=== PATIENT | female | born 1985 | race Two or more races ===

== ENCOUNTER 2025-02-08 22:49 | Inpatient (IN) | payer BC, MEDICAID, SELFPAY ==
[2025-02-08 22:51] VITALS: BMI 39.9
[2025-02-08 23:34] VITALS: BP 141/90; PULSE 121; RESP 18; TEMP 39.1; O2SAT 96
--- NOTE | 2025-02-08 23:41 | PD.EDRME ---
Rapid Medical Screening Exam RME Arrival date/time: 02/08/25 22:49 This is a case of 39 year old female came in with fever and abodminal pain with dysuria hx of kidney stone Chief Complaint: Fever Time Seen by Provider: 02/08/25 23:40 Vital signs: Vital Signs Temperature 102.4 F H 02/08/25 23:34 Pulse Rate 121 H 02/08/25 23:34 Respiratory Rate 18 02/08/25 23:34 Blood Pressure 141/90 H 02/08/25 23:34 Pulse Oximetry (%) 96 02/08/25 23:34 Oxygen Delivery Method Room Air 02/08/25 23:34
[2025-02-08 23:59] LABS: Lactate (Lactic Acid) 0.7 mMol/L (0.4-2.0)
[2025-02-09] VITALS (16 sets, daily range): BP systolic 110–144; BP diastolic 72–98; PULSE 80–111; RESP 18–20; TEMP 36.4–38.4; O2SAT 96–99; BMI 39.6
[2025-02-09 00:01] LABS: Basophils % (Auto) 0 % (0-2.5); Eosinophils % (Auto) 0 % (0-10); Hematocrit 36.3 % (36.0-46.0); Hemoglobin 12.9 g/dL (12.0-16.0); Immature Granulocytes % (Auto) 1 % (0-0); Immature Granulocytes Auto 0.11 Thou/mm3 (0.00-0.00); Lymphocytes # (Auto) 0.8 Thou/mm3 (1.0-4.8); Lymphocytes % (Auto) 5 % (10-50); Mean Corpuscular HGB Conc 35.5 g/dl (31.0-37.0); Mean Corpuscular Hemoglobin 28.2 pg (25.0-35.0); Mean Corpuscular Volume 79 fL (80-100); Monocytes # (Auto) 1.2 Thou/mm3 (0.0-0.8); Monocytes % (Auto) 8 % (0-12); Neutrophils # (Auto) 13.7 Thou/mm3 (1.8-7.7); Neutrophils % (Auto) 87 % (37-80); Nucleated Red Blood Cell % 0 /100 WBC (0); Platelet Count 246 Thou/mm3 (140-440); RDW Standard Deviation 38.2 fL (36.4-46.3); Red Blood Count 4.57 Miln/mm3 (4.00-5.20); White Blood Count 15.8 Thou/mm3 (3.6-11.0)
[2025-02-09 00:27] LABS: Alanine Aminotransferase 16 U/L (10-49); Albumin, Serum 4.5 gm/dL (3.5-5.0); Albumin/Globulin Ratio 1.5 (1.2-2.2); Alkaline Phosphatase 126 U/L (46-116); Anion Gap 11 (7-16); Aspartate Amino Transferase 15 U/L (0-34); BUN/Creatinine Ratio 8 Ratio (12-20); Bilirubin,Total 0.8 mg/dL (0.3-1.2); Blood Urea Nitrogen 6 mg/dL (9-23); Carbon Dioxide 21.2 mMol/L (20.0-31.0); Chloride 105 mMol/L (98-107); Creatinine (Component) 0.8 mg/dL (0.6-1.3); Estimated Creatinine Clearance 113.6 mL/min (>60); Globulin 3.1 gm/dL (2.3-3.5); Glucose 124 mg/dL (74-106); Lipase 31 U/L (12-53); Osmolality,Calculated 272 (275-295); Potassium 3.3 mMol/L (3.4-5.1); Sodium 137 mMol/L (136-145); Total Protein 7.6 gm/dL (5.7-8.2); eGFR > 60 See Note
[2025-02-09] MEDS: SODIUM CHLORIDE 0.9% 1000 ML 1,710 ML 1710 ML IV (00:40)
[2025-02-09] MEDS: cefTRIAXone/D5w 1gm IV premix 1 GM/50 ML BAG IV ×2 (00:42→06:34)
[2025-02-09] MEDS: ACETAMINOPHEN 325 MG TABLET 650 MG PO ×3 (00:42→22:41)
--- NOTE | 2025-02-09 00:54 | PD.EDABDPN ---
ED Abdominal Pain RME/HPI General Chief Complaint: Fever Stated complaint: FEVER , ABD TENDER, NAUSEA, DIZZY Time seen by provider: 02/08/25 23:40 Arrival date/time: 02/08/25 22:49 Limitations: no limitations RME / HPI RME / HPI narrative: 02/08/25 22:49 This is a case of 39 year old female came in with fever and abodminal pain with dysuria hx of kidney stone -------- Dr. Santiago'stephne Main ED Evaluation: 39yo female presents to the ED for complaints of bilateral mid abdominal pain and a fever x 1 day. No radiation or migration. Patient reports associated dizziness, chills, and nausea. She denies any runny nose, cough, vomiting, dysuria, chest pain, shortness of breath or any other associated symptoms. She denies any sick contacts. NKA. Related Data Previous Rx's ?Medication ?Instructions ?Recorded cephalexin 500 mg capsule 500 mg PO TID 7 days #21 caps 02/09/25 Allergies Allergy/AdvReac Type Severity Reaction Status Date / Time No Known Allergies Allergy Verified 07/09/24 10:19 Review of Systems Review of Systems Systems Reviewed: All systems reviewed, normal except as documented Past Medical History Past Medical History NEUROLOGIC: Negative Neurological Disorders or Seizures CARDIAC: Positive Cardiac Disorders and Hypercholesterolemia; Negative Congestive Heart Failure or Hypertension RESPIRATORY: Negative Chronic Obstructive Pulmonary Disease (COPD) or Asthma GASTROINTESTINAL: Negative Gastrointestinal Disorders GENITOURINARY: Positive Genitourinary Disorders and Kidney Stones; Negative Renal Disease REPRODUCTIVE: Positive Previous Pregnancies MUSCULOSKELETAL: Negative Musculoskeletal Disorders ENDOCRINE: Positive Endocrine Disorders and Parathyroid Disease; Negative Diabetes Mellitus Type 1 or Diabetes Mellitus Type 2 HEMATOLOGIC: Positive Blood Disorders and Anemia; Negative Sickle Cell Disease OTHER HISTORY: Positive Hospitalization and Chicken Pox; Negative Autoimmune Disease, Blood Transfusions, Blood Transfusion Reaction, Anesthesia Reactions or Cancer Family History FAMILY HISTORY: Negative Family Psychiatric Problems, Family Respiratory Disorders, Family Cardiac Disorders, Family Gastrointestinal Problems, Family Cancer, Family Surgery or Family Anesthesia Reaction Surgical History SURGICAL: Positive Tubal Ligation and Section Social History SMOKING STATUS: Never smoker SECOND HAND EXPOSURE: No SUBSTANCE USE: does not use ED Exam General Limitations: Present no limitations General appearance: Present alert, in no apparent distress and other (appears fatigued) Head Head exam: Present atraumatic Eye Eye exam: Present normal appearance, PERRL and EOMI ENT ENT exam: Present normal exam, normal oropharynx and mucous membranes moist Neck Neck exam: Present normal inspection, full ROM and trachea midline Chest Chest inspection: Present normal inspection and symmetric chest wall rise Respiratory Respiratory exam: Present normal lung sounds bilaterally Cardiovascular Cardiovascular exam: Present regular rate, normal rhythm and normal heart sounds Abdominal Exam Abdominal exam: Present soft and other (mild bilateral mid abdominal pain on palpation); Absent guarding, rebound or Pickard's sign Extremities Exam Extremities exam: Present normal inspection and full ROM Back Exam Back exam: Present normal inspection and full ROM; Absent CVA tenderness (R) or CVA tenderness (L) Neurological Exam Neurological exam: Present alert, oriented X3 and CN II-XII intact Psychiatric Psychiatric exam: Present normal affect and normal mood Skin Skin exam: Present warm, dry, intact and normal color Course Course Course Narrative: 2342: Sepsis alert initiated. Orders made at this time are congruent with ED Adult Sepsis Order List. Re-evaluation is to be completed. 0245: NS IVF infused. 0315: Sepsis reassessment performed consisting of lab review, vitals, physical exam including auscultation of heart, lungs, and visual evaluation of capillary refills, mucosal membranes and extremities. 0551: Patient is febrile with a temperature of 101.2 and is tachycardic. Will consult an admission to the hospitalist. 0600: Care signed out to Dr. Davis (emergency physician). Past medical, surgical, social and family history reviewed. Vitals and home medications reviewed. Results and treatment plan discussed. They will assume the care of the patient at this time and will follow the patient, pending transfer. Quality Measures Possible source: GI tract/intra-abdominal and genitourinary Blood cultures ordered: yes Antibiotic ordered: Yes Pertinent labs: 02/08/25 23:55 Lactic Acid 0.7 mMol/L (0.4-2.0) Procalcitonin 0.40 ng/ml (0.0-0.49) sepsis Orders Category Date Time Status Bedside COVID-19 Antigen Test NOW Care 02/08/25 23:[address] Screening NOW Care 02/09/25 02:[address] abdomen pelvis w con Stat Exams 02/09/25 02:41 Taken Blood Culture (Lab) Stat Lab 02/08/25 23:50 Received CBC Stat Lab 02/08/25 23:55 Completed Comprehensive Metabolic Panel Stat Lab 02/08/25 23:55 Completed HCG Qualitative,Urine Stat Lab 02/09/25 00:11 Completed Lactate (Lactic Acid) Stat Lab 02/08/25 23:55 Completed Lipase Stat Lab 02/08/25 23:55 Completed Procalcitonin Stat Lab 02/08/25 23:55 Completed Urinalysis Stat Lab 02/09/25 00:11 Completed Acetaminophen Tab [Tylenol Tab] Med 02/08/25 23:40 Discontinued 650 mg PO X1 ONE Sodium Chloride 0.9% 1000 ml [Ns] 1,710 ml Med 02/08/25 23:55 Discontinued IV 1,710 mls/hr cefTRIAXone/D5w 1gm IV premix [Rocephin/D5w 1gm IV Med 02/08/25 23:56 Discontinued premix] 1 gm in 50 ml IV X1 cefTRIAXone/D5w 1gm IV premix [Rocephin/D5w 1gm IV Med 02/09/25 05:18 Pending premix] 1 gm in 50 ml IV X1 Vital Signs Vital signs: Vital Signs Temperature 102.4 F H 02/08/25 23:34 Pulse Rate 121 H 02/08/25 23:34 Respiratory Rate 18 02/08/25 23:34 Blood Pressure 141/90 H 02/08/25 23:34 Pulse Oximetry (%) 96 02/08/25 23:34 Oxygen Delivery Method Room Air 02/08/25 23:34 Abdominal Pain MDM Patient data External records reviewed:: [facility] previous records (Per chart review, patient was seen here on 06/03/24 for palpitations.) Clinical information provided by:: patient Social determinants that could affect healthcare access:: none Patient has the following chronic illnesses:: HLD How is presenting disease/condition affected by chronic disease/condition?: uneffected by Evaluation data The following diagnostics were reviewed and interpreted by me:: lab results and radiology exam(s) Lab and/or radiology exams considered but not ordered:: none Interpretation Summary: WBC 15.8, Potassium 3.3, Glucose 124, Lactic Acid is normal, Lipase is normal, Procalcitonin is normal, UA is positive for a UTI, HCG is negative, according to my interpretation. ----- Telerad Preliminary Report Draft Patient: YVETTE VILLEDALA [facility] Record#: [id number] Birthdate: 1985 Age/Sex: 39 / F Location: [facility] Attending Dr: Ordering Physician: Date of Service: Procedure(s): Accession Number(s): cc: ~ CT scan of the abdomen and pelvis with intravenous contrast (axial sections with sagittal and coronal reformats) February 09, 2025 at 0344 hours Clinical History: 39 yo with abdominal pain. Comparison: None. Findings: The lung bases are clear. The liver, gallbladder, pancreas, spleen, and adrenals are unremarkable. Nonobstructing bilateral kidney stones. Mildly heterogeneous right renal enhancement. Mild right hydroureteronephrosis with transition point at the UVJ. Mild right perinephric fat stranding. No evidence of bowel obstruction. The appendix is within normal limits. There is no mesenteric or retroperitoneal adenopathy. The urinary bladder is unremarkable. There is no free fluid or free air. No acute fractures. Chronic disc disease at L4-L5 and L5-S1. The uterus and ovaries are within normal limits. Impression: 1. Nonobstructing bilateral nephrolithiasis. 2. Right hydroureteronephrosis with transition point at the UVJ, consider recently passed right ureteral stone in the differential diagnosis. 3. Right perinephric fat stranding and mild heterogeneous enhancement of the right kidney, consider pyelonephritis in the differential diagnosis. Report Electronically Signed By: David Mcnally 02/09/2025 4:47:54 AM Medications / Prescriptions Medications or Prescriptions considered but not ordered:: none Medication administrations:: Medication Administration History Ceftriaxone Sodium/Dextrose (Rocephin/D5w 1gm Iv Premix) 1 gm in 50 mls @ 100 mls/hr IV X1 ONE Stop: 02/09/25 05:47 Discontinued Medications Acetaminophen (Acetaminophen 325 Mg Tablet) 650 mg PO X1 ONE Stop: 02/08/25 23:41 Last Admin: 02/09/25 00:42 Dose: 650 mg Documented By: DARYL Sodium Chloride (Ns) 1,710 mls @ 1,710 mls/hr 30 ml/kg infuse over 60 min (1710 ml) IV .Q1H ONE Stop: 02/09/25 00:54 Last Infusion: 02/09/25 02:45 Dose: Infused Documented By: Admin: 02/09/25 00:40 Dose: 1,710 mls/hr Documented By: DARYL Ceftriaxone Sodium/Dextrose (Rocephin/D5w 1gm Iv Premix) 1 gm in 50 mls @ 100 mls/hr IV X1 ONE Stop: 02/09/25 00:25 Last Infusion: 02/09/25 02:45 Dose: Infused Documented By: Admin: 02/09/25 00:42 Dose: 100 mls/hr Documented By: DARYL see above Consultations Consultation(s) initiated? (list below): Yes Consultation #1 (Physician, Specialty, Details): Discussed case with the resident physician, attending Dr. Wilkerson from Hospitalist service regarding admission. Discussed patients ED course, exam findings, labs, and radiology results. The Hospitalist requests the patient to be transferred due to concern for ureteral stricture. Time: 05:53 Diagnosis Differential diagnosis abdominal pain: other (atypical presentation of appendicitis, UTI, pyelonephritis, sepsis) Most likely diagnosis given after review of the tests above:: see clinical impression below Admission Indicated Admission indicated?: not indicated Admission Request Was there a request for admission?: No Disposition Plan Disposition Plan: other (specify) (Signed out to Dr. Davis at 0600 pending transfer.) Critical Care Time Critical Care Time Critical Care Time: Yes Total Critical Care Time (min.): 45 Attestation: The high probability of sudden, clinically significant deterioration in the patient?s condition required the highest level of my preparedness to intervene urgently. The services I provided to this patient were to treat and/or prevent clinically significant deterioration. Services included the following: chart data review, reviewing nursing notes and/or old charts, documentation time, financial analysis consultant collaboration regarding findings and treatment options, medication orders and management, direct patient care, vital sign assessments and ordering, interpreting and reviewing diagnostic studies and lab tests. Aggregate critical care time includes only time during which I was engaged in work directly related to the patient?s care, as described above, whether at bedside or elsewhere in the Emergency Department. It did not include time spent performing other reported procedures or the services of residents, students, nurses or physician assistants. Discharge Plan Plan Patient Disposition: HOME (Self Care) Patient condition on transfer: Stable Prescriptions/Referrals Prescriptions/Med Rec: New cephalexin 500 mg capsule 500 mg PO TID 7 Days Qty: 21 0RF Referrals: Brodie Linn [Primary Care Provider] - In 1 week Problem List Clinical Impression: Pyelonephritis, Unspecified renal colic Patient/Caregiver Discharge Instructions Diet Instructions: Stay hydrated with Pedialyte and Gatorade Education Materials: ED Pyelonephritis, Female (Adult) Additional Instructions: You likely passed a kidney stone. However now we will treat you for urinary tract infection. Please take the antibiotics until completion. If you are on control pills you will have to find an alternate for control for the next 30 days. You can take [id number] Tylenol or Motrin as needed for any pain or fever. Return to the emergency department for worsening symptoms, or any other concerns. Print Language: Emirati Stand Alone Forms: [facility] Award Info., Patient Portal Info Letter
[2025-02-09 00:55] LABS: Collection Type, Urine Clean Catch
[2025-02-09 01:04] LABS: Bacteria,Urine Rare; Bilirubin,Urine Negative (Negative); Blood,Urine 1+ (Negative); Clarity,Urine Clear (Clear/Hazy); Color,Urine Colorless (Lt Yel-Yel); Glucose, Urine Negative (Negative); Ketones,Urine Trace (Negative); Leukocyte Esterase,Urine Positive (Negative); Nitrite,Urine Negative (Negative); PH,Urine 6.5 (5.0-7.0); Protein,Urine Negative (Neg - Trace); RBC,Urine 9 /hpf (0-3); Specific Gravity,Urine 1.005 (1.001-1.035); Squamous Epithelial Cell,Urine 1 /hpf (0-5); Urobilinogen,Urine Negative mg/dL (0.0-1.0); WBC,Urine 23 /hpf (0-5)
[2025-02-09 01:07] LABS: HCG Qualitative,Urine Negative
--- NOTE | 2025-02-09 02:41 | XR_ITS ---
Examination: CT abdomen with intravenous contrast CT pelvis with intravenous contrast 2-D coronal reconstructions 2-D sagittal reconstructions Date and time of exam:February 09, 2025 0344 hours Comparison 06/12/2023 INDICATIONS: Fever abdominal pain dizziness and nausea today, history kidney stones. CTDI: vol (mGy) 15.7 DLP: (mGycm) 926 Technique: Multiple axial sections of the abdomen and pelvis have been obtained. 64 slice high-resolution scanner used. 3 mm axial sections have been obtained, post intravenous injection 60 cc [id number] 2-D sagittal, coronal reconstructions obtained. Low dose protocols were performed. One or more of the following dose reduction techniques were used; automated exposure control, adjustment of the mA and/or KV according to patient size, use of iterative reconstruction technique. Findings: Fatty infiltration throughout the liver no focal liver lesions No gallstones No splenic or pancreatic lesion 20 mm left adrenal nodule likely adenoma Numerous bilateral renal calculi, minimal bilateral hydronephrosis, wall thickening of the ureters No ureteral calculi Normal appendix No bowel obstruction Anteverted uterus No pelvic mass No bladder mass or bladder calculi Advanced degenerative disc disease L5-S1 IMPRESSION: Numerous bilateral nonobstructing renal calculi Bilateral urinary tract infection appearance
--- NOTE | 2025-02-09 04:48 | PRELIM_ITS ---
CT scan of the abdomen and pelvis with intravenous contrast (axial sections with sagittal and coronal reformats) February 09, 2025 at 0344 hours Clinical History: 39 yo with abdominal pain. Comparison: None. Findings: The lung bases are clear. The liver, gallbladder, pancreas, spleen, and adrenals are unremarkable. Nonobstructing bilateral kidney stones. Mildly heterogeneous right renal enhancement. Mild right hydroureteronephrosis with transition point at the UVJ. Mild right perinephric fat stranding. No evidence of bowel obstruction. The appendix is within normal limits. There is no mesenteric or retroperitoneal adenopathy. The urinary bladder is unremarkable. There is no free fluid or free air. No acute fractures. Chronic disc disease at L4-L5 and L5-S1. The uterus and ovaries are within normal limits. Impression: 1. Nonobstructing bilateral nephrolithiasis. 2. Right hydroureteronephrosis with transition point at the UVJ, consider recently passed right ureteral stone in the differential diagnosis. 3. Right perinephric fat stranding and mild heterogeneous enhancement of the right kidney, consider pyelonephritis in the differential diagnosis. Report Electronically Signed By: David Mcnally 02/09/2025 4:47:54 AM [EST]
--- NOTE | 2025-02-09 06:19 | XR_ITS ---
Examination: AP chest single view TECHNIQUE: AP portable upright chest single view Date and time: Made 2024 at 0623 hours INDICATIONS: Abdominal pain and fever today FINDINGS: No significant cardiac enlargement Mild elevation right hemidiaphragm. No lobar pneumonia or pulmonary edema. Mild osteopenia IMPRESSION: No pneumonia identified
[2025-02-09] MEDS: POTASSIUM CHLORIDE 20 mEq TABCR 40 MEQ PO (06:33)
[2025-02-09] MEDS: SODIUM CHLORIDE 0.9% 1000 ML 1,000 ML 150 ML IV (06:34)
[2025-02-09] MEDS: SODIUM CHLORIDE 0.9% 1000 ML 1,000 ML 999 ML IV (06:34)
--- NOTE | 2025-02-09 06:37 | PD.EDADDENDU ---
Emergency Room Addendum <Radha Espinosa - Last Filed: 02/09/25 07:54> Addendum Narrative: 0600: Care assumed from Dr. Grady, the previous shift emergency physician. Past medical, surgical, social and family history reviewed. Vitals and home medications reviewed. I will assume the care of the patient at this time, pending possible urology transfer. Please refer to the emergency department record for history and examination from initial visit.? Physical exam by me shows patient under no acute distress at this time. 0750: Discussed test HPI, PMHx, lab, radiology results and/or management with Dr. Shukla. Will consult an admission to the hospitalist. <Tyrell Davis MD - Last Filed: 02/09/25 07:55> Addendum Narrative: 0600: Care assumed from Dr. Grady, the previous shift emergency physician. Past medical, surgical, social and family history reviewed. Vitals and home medications reviewed. I will assume the care of the patient at this time, pending possible urology transfer. Please refer to the emergency department record for history and examination from initial visit.? Physical exam by me shows patient under no acute distress at this time. 0750: Discussed test HPI, PMHx, lab, radiology results and/or management with Dr. Shukla. Will consult an admission to the hospitalist. Hospitalist was called Dr Hassan and they will be admitting the patient. Patient did meet SIRS criteria formally. She had several liters of fluid initial lactic acid was normal and after Tylenol and fluids patient is looking better heart rate was in the 90s last was checked.
[2025-02-09] MEDS: ACETAMINOPHEN 500 MG TABLET 1000 MG PO (06:38)
[2025-02-09] MEDS: PANTOPRAZOLE 40 MG TABLET PO (10:18)
--- NOTE | 2025-02-09 13:12 | PD.RESHP ---
Documentation for date of: 02/09/25 [facility] History of Present Illness History of present illness: Cristina Castañeda is a 39-year-old female with a past medical history of hyperparathyroidism and recurrent nephrolithiasis who presents on 02/09 with fevers and chills. Patient states that symptoms started in the morning with associated nausea, dizziness, headaches, and bilateral flank pain. She has a known history of recurrent nephrolithiasis and secondary to hypercalcemia/hyperparathyroidism. Follows up with Dr. Carballo and has had ureteral stents placed in the past that have since been removed. Otherwise, denies hematuria, dysuria, or urinary frequency. States that she used to follow-up with an educational manager in the past but no longer does. In the ED, BP 141/90, HR 121, temp 1 to 2.4 ?F. WBC 15.8, otherwise CBC unremarkable. CHEM panel showed K of 3.3, normal kidney function, normal lactate, normal corrected calcium 10, Pro-Jeff negative. UA showed 1+ blood, 9 RBC, 23 WBC, rare bacteria, beta-hCG negative. CT A/P showed numerous bilateral nonobstructing renal calculi, minimal bilateral hydronephrosis with wall thickening of the ureters. Given IVF per sepsis protocol, an additional 1 L NS, and started on maintenance IVF, ceftriaxone 1 g x 2, 40 mEq of KCl. PMHx: hyperparathyroidism, recurrent nephrolithiasis Medications: none FHx: nephrolithiasis in sister and mother PSHx: ureteral stents Review of Systems Review of Systems Systems Reviewed: All systems reviewed, normal except as documented Exam Vital Signs Temp Pulse Resp BP Pulse Ox O2 Del Method 97.6 F 88 18 122/80 99 Room Air 02/09/25 11:48 02/09/25 11:48 02/09/25 11:48 02/09/25 11:48 02/09/25 11:48 02/09/25 11:48 Narrative Exam General: AOx3, no acute distress, able to speak full sentences HEENT: NC/AT, mucous membranes moist, bilateral sclera anicteric Cardiovascular: regular rate and rhythm, S1/S2 present, no murmurs appreciated Pulmonary: clear to auscultation bilaterally, no rales/rhonchi/wheezes Abdominal: soft, non-tender, non-distended, no rebound/guarding, normal bowel sounds present Musculoskeletal: no CVA tenderness, normal ROM, no peripheral edema Skin: warm and dry, intact, no rashes Neuro: CN II-XII intact, no focal deficits Results: Labs 02/10/25 04:29 02/10/25 04:29 Labs: Short CBC 02/08/25 Range/Units 23:55 WBC 15.8 H (3.6-11.0) Thou/mm3 Hgb 12.9 (12.0-16.0) g/dL Hct 36.3 (36.0-46.0) % Plt Count 246 (140-440) Thou/mm3 BMP 02/08/25 23:55 Sodium 137 Potassium 3.3 L Chloride 105 Carbon Dioxide 21.2 BUN 6 L Creatinine 0.8 Glucose 124 H Calcium 10.0 Liver Function 02/08/25 Range/Units 23:55 Total Bilirubin 0.8 (0.3-1.2) mg/dL AST 15 (0-34) U/L ALT 16 (10-49) U/L Alkaline Phosphatase 126 H (46-116) U/L Albumin 4.5 (3.5-5.0) gm/dL Urine 02/09/25 Range/Units 00:11 Urine Color Colorless A (Lt Yel-Yel) Urine Clarity Clear (Clear/Hazy) Urine pH 6.5 (5.0-7.0) Ur Specific [place] 1.005 (1.001-1.035) Urine Protein Negative (Neg - Trace) Urine Glucose (UA) Negative (Negative) Quality Measures Quality Measures sepsis Current suspected stage: ruled out Possible source: GI tract/intra-abdominal and genitourinary Blood cultures ordered: yes Antibiotic ordered: Yes Medications Home Medications and Allergies Allergies Allergy/AdvReac Type Severity Reaction Status Date / Time No Known Allergies Allergy Verified 07/09/24 10:19 Visit Medications Acetaminophen (Acetaminophen 325 Mg Tablet) 650 mg PO Q6H PRN PRN Reason: PAIN 1-3 OR FEVER > 100.4 Stop: 03/11/25 08:57 Hydrocodone Bitart/Acetaminophen (Hydrocodone/Apap 5/325 Tablet) 1 tab PO Q6HR PRN PRN Reason: PAIN SCALE 4-6 (Moderate Stop: 02/14/25 08:57 Ceftriaxone Sodium/Dextrose (Rocephin/D5w 1gm Iv Premix) 1 gm in 50 mls @ 100 mls/hr IV QDAY [facility] Stop: 02/17/25 08:59 Ondansetron HCl (Ondansetron Inj 2 Mg/Ml Inj 2 Ml) 4 mg IV Q6H PRN; Protocol PRN Reason: NAUSEA OR VOMITING Stop: 03/11/25 08:57 Pantoprazole Sodium (Pantoprazole 40 Mg Tablet) 40 mg PO QDAY [facility] Stop: 03/11/25 08:59 Last Admin: 02/09/25 10:18 Dose: 40 mg Discontinued Medications Acetaminophen (Acetaminophen 325 Mg Tablet) 650 mg PO X1 ONE Stop: 02/08/25 23:41 Last Admin: 02/09/25 00:42 Dose: 650 mg Acetaminophen (Acetaminophen 500 Mg Tablet) 1,000 mg PO X1 ONE Stop: 02/09/25 06:34 Last Admin: 02/09/25 06:38 Dose: 1,000 mg Sodium Chloride (Ns) 1,710 mls @ 1,710 mls/hr 30 ml/kg infuse over 60 min (1710 ml) IV .Q1H ONE Stop: 02/09/25 00:54 Last Infusion: 02/09/25 02:45 Dose: Infused Ceftriaxone Sodium/Dextrose (Rocephin/D5w 1gm Iv Premix) 1 gm in 50 mls @ 100 mls/hr IV X1 ONE Stop: 02/09/25 00:25 Last Infusion: 02/09/25 02:45 Dose: Infused Ceftriaxone Sodium/Dextrose (Rocephin/D5w 1gm Iv Premix) 1 gm in 50 mls @ 100 mls/hr IV X1 ONE Stop: 02/09/25 05:47 Last Infusion: 02/09/25 07:05 Dose: Infused Sodium Chloride (Ns) 1,000 mls @ 999 mls/hr IV .Q1H1M ONE Stop: 02/09/25 06:57 Last Infusion: 02/09/25 07:35 Dose: Infused Sodium Chloride (Ns) 1,000 mls @ 150 mls/hr IV .Q6H40M ONE Stop: 02/09/25 12:58 Last Admin: 02/09/25 06:34 Dose: 150 mls/hr Potassium Chloride (Potassium Chloride 20 Meq Tabcr) 40 meq PO X1 ONE Stop: 02/09/25 06:20 Last Admin: 02/09/25 06:33 Dose: 40 meq Assessment & Plan Plan Cristina Castañeda is a 39-year-old female with a past medical history of hyperparathyroidism and recurrent nephrolithiasis who presents on 02/09 with fevers and chills. Patient states that symptoms started in the morning with associated nausea, dizziness, headaches, and bilateral flank pain. Admitted for hydronephrosis/? pyelonephritis with urology consulted. #Complicated UTI #Bilateral, nonobstructing renal calculi #Bilateral hydronephrosis #History of recurrent nephrolithiasis s/p ureteral stenting Presents with fever, chills, nausea, dizziness, and bilateral flank pain for one day. Has history of recurrent nephrolithiasis with ureteral stents placed in the past and follows-up with Dr. Carballo. SIRS positive with HR 121, HR 102.4 F, and WBC 15.8 and source likely urological -> sepsis, but no signs of end-organ damage. ? Urology consulted, appreciate recommendations ? Follow-up urine cultures ? Ceftriaxone 1 g IV daily (02/09-) ? Pain management: tylenol, norco #History of hyperparathyroidism Not currently on any medications and does not follow-up with educational manager. Ca within normal limits upon presentation. ? Follow-up AM PTH levels Hospital management: Disposition: pending further urology recommendations Diet: renal Lines: PIV DVT prophylaxis: SCDs GI prophylaxis: pantoprazole 40 mg daily CODE STATUS: full code ----- Plan discussed with attending physician Dr. Kimber Stafford MD PGY-1 Internal Medicine Attending Provider Attestation/Addendum I attest that I was physically present for the evaluation, physical examination, lab and imaging review of the patient with the residents. I discussed the case with the residents and agree with the findings and plans of care as documented above. Patient is a 39 years old female with past medical history of hyperthyroidism and recurrent nephrolithiasis who presented with complaint of fever and chills. Her symptoms started this morning, associated with nausea, dizziness, headaches and bilateral flank pain. She follows with Dr. Linda was for her kidney stones and had stents placed in the past which has been removed already. In the ED, her blood pressure was 141/90, temperature was 102.4 ?F, other vitals were stable. WBC count was 15.8, potassium 3.3, corrected calcium 10. Urinalysis showed 1+ blood, 9 RBCs, 23 WBCs, rare bacteria. CT abdomen/pelvis was obtained, which showed numerous bilateral nonobstructing renal calculi, minimal bilateral hydronephrosis with wall thickening of ureters. Urology was contacted by ED, who agreed to consult. After examination of the patient and review of the clinical data I feel that this patient needs admission to the hospital for further treatment/evaluation on complicated UTI in setting of bilateral nonobstructive renal calculi, mild bilateral hydronephrosis. Will start her on IV Rocephin, obtain cultures and await urology recommendations. We will also follow-up with her calcium level and PTH level in the morning. Marco A Quiroga MD
[2025-02-10] VITALS: BP 109/77; PULSE 100; RESP 18; TEMP 36.2; O2SAT 97
[2025-02-10 04:00] VITALS: BP 121/74; PULSE 86; RESP 18; TEMP 36.6; O2SAT 98
[2025-02-10 05:42] LABS: Basophils % (Auto) 0 % (0-2.5); Eosinophils % (Auto) 0 % (0-10); Hematocrit 34.4 % (36.0-46.0); Hemoglobin 11.5 g/dL (12.0-16.0); Immature Granulocytes % (Auto) 1 % (0-0); Immature Granulocytes Auto 0.06 Thou/mm3 (0.00-0.00); Lymphocytes # (Auto) 1.1 Thou/mm3 (1.0-4.8); Lymphocytes % (Auto) 9 % (10-50); Mean Corpuscular HGB Conc 33.4 g/dl (31.0-37.0); Mean Corpuscular Hemoglobin 28.3 pg (25.0-35.0); Mean Corpuscular Volume 85 fL (80-100); Monocytes # (Auto) 1.4 Thou/mm3 (0.0-0.8); Monocytes % (Auto) 12 % (0-12); Neutrophils # (Auto) 9.6 Thou/mm3 (1.8-7.7); Neutrophils % (Auto) 79 % (37-80); Nucleated Red Blood Cell % 0 /100 WBC (0); Platelet Count 183 Thou/mm3 (140-440); RDW Standard Deviation 42.1 fL (36.4-46.3); Red Blood Count 4.07 Miln/mm3 (4.00-5.20); White Blood Count 12.2 Thou/mm3 (3.6-11.0)
[2025-02-10 06:20] LABS: Anion Gap 12 (7-16); BUN/Creatinine Ratio 7 Ratio (12-20); Blood Urea Nitrogen < 5 mg/dL (9-23); Calcium 10.1 mg/dL (8.3-10.6); Carbon Dioxide 20.8 mMol/L (20.0-31.0); Chloride 105 mMol/L (98-107); Creatinine (Component) 0.7 mg/dL (0.6-1.3); Estimated Creatinine Clearance 129.3 mL/min (>60); Glucose 101 mg/dL (74-106); Magnesium 1.8 mg/dL (1.6-2.6); Osmolality,Calculated 272 (275-295); Phosphorous 1.4 mg/dL (2.4-5.1); Potassium 3.6 mMol/L (3.4-5.1); Sodium 138 mMol/L (136-145); eGFR > 60 See Note
[2025-02-10 08:00] VITALS: BP 120/81; PULSE 86; RESP 16; TEMP 36.6; O2SAT 95
[2025-02-10] MEDS: PANTOPRAZOLE 40 MG TABLET PO (08:20)
[2025-02-10] MEDS: cefTRIAXone/D5w 1gm IV premix 1 GM/50 ML BAG IV (08:20)
[2025-02-10] MEDS: NAPH,KPH MBDB 1 PACKET (1.5 GM) PO (08:20)
--- NOTE | 2025-02-10 09:05 | PC.SS ---
Patient Cristina Castañeda is a 39 Year old female admitted for Pyelonephritis. SS met with patient to discuss discharge plan and verify demographic information. Patient reports she lives at home with her . She reports she does not utilize any source of DME to assist with ambulation. She is able to complete all ADL's independently. Patient follows up at [facility] in [place]. Choice of pharmacy is [facility]. Surrogate decision maker is her Deshaun Castañeda [phone]. Patient reports once he is medically cleared he will discharge back home, family will provide transportation. Next of Kin: , Deshaun Castañeda Discharge Plan: Home
--- NOTE | 2025-02-10 09:38 | PC.SS ---
SS follow up note; Patient is on IV ABX. Will discharge home when medically cleared.
--- NOTE | 2025-02-10 09:59 | PD.RESPRO ---
Documentation for date of: 02/10/25 Exam Vital Signs Temp Pulse Resp BP Pulse Ox O2 Del Method 97.8 F 86 16 120/81 95 Room Air 02/10/25 08:00 02/10/25 08:00 02/10/25 08:00 02/10/25 08:00 02/10/25 08:00 02/10/25 08:00 Objective Labs 02/10/25 04:29 02/10/25 04:29 Labs: Laboratory Results - last 24 hr 02/10/25 04:29 WBC 12.2 H RBC 4.07 Hgb 11.5 L Hct 34.4 L MCV 85 MCH 28.3 MCHC 33.4 RDW Std Deviation 42.1 Plt Count 183 D Neut % (Auto) 79 Lymph % (Auto) 9 L [place] % (Auto) 12 Eos % (Auto) 0 Baso % (Auto) 0 Neut # (Auto) 9.6 H Lymph # (Auto) 1.1 [place] # (Auto) 1.4 H Eos # (Auto) 0.0 Baso # (Auto) 0.0 Immature Gran # (Auto) 0.06 H Absolute Nucleated RBC 0.00 Immature Gran % 1 H Nucleated RBC % 0 Sodium 138 Potassium 3.6 Chloride 105 Carbon Dioxide 20.8 Anion Gap 12 BUN < 5 L Creatinine 0.7 Estim Creat Clear Calc 129.3 eGFR > 60 BUN/Creatinine Ratio 7 L Glucose 101 Calculated Osmolality 272 L Calcium 10.1 Phosphorus 1.4 L Magnesium 1.8 Quality Measures Quality Measures sepsis Possible source: GI tract/intra-abdominal and genitourinary Blood cultures ordered: yes Assessment & Plan Assessment Current Active Medications: Generic Name Dose Route Start Last Admin Trade Name Jose PRN Reason Stop Dose Admin Acetaminophen 650 mg 02/09/25 08:58 02/09/25 22:41 Acetaminophen 325 Mg Tablet PO 03/11/25 08:57 650 mg Q6H PRN Administration PAIN 1-3 OR FEVER > 100.4 Hydrocodone Bitart/Acetaminophen 1 tab 02/09/25 08:58 Hydrocodone/Apap 5/325 Tablet PO 02/14/25 08:57 Q6HR PRN PAIN SCALE 4-6 (Moderate Ceftriaxone Sodium/Dextrose 1 gm in 50 mls @ 100 mls/hr 02/10/25 09:00 02/10/25 08:20 Rocephin/D5w 1gm Iv Premix IV 02/17/25 08:59 100 mls/hr QDAY PRAVEEN Administration Ondansetron HCl 4 mg 02/09/25 08:58 Ondansetron Inj 2 Mg/Ml Inj 2 Ml IV 03/11/25 08:57 Q6H PRN NAUSEA OR VOMITING Protocol Pantoprazole Sodium 40 mg 02/09/25 09:00 02/10/25 08:20 Pantoprazole 40 Mg Tablet PO 03/11/25 08:59 40 mg QDAY PRAVEEN Administration
[2025-02-10 12:00] VITALS: BP 114/75; PULSE 77; RESP 17; TEMP 36.8; O2SAT 98
--- NOTE | 2025-02-10 14:29 | PD.RESDS ---
Planned Discharge Date 02/10/25 DS: Providers Provider Date of admission: 02/09/25 08:58 Primary care physician: Physician No Primary/Family Admitting Provider: Marco A Quiroga MD Attending Provider on Admission: Marco A Quiroga MD Consults: 02/09/25 09:03 Consult to Urology Stat Comment: Nephrolithiasis, pyelonephritis with hx stents Consulting Provider: John Carballo Attending Provider on DC: Angel Stafford MD Discharging Provider: Angel Stafford MD DS: Diagnosis Problem List Completed Was Problem List Reviewed/Reconciled?: Yes Hospital Course Hospital Course Hospital course: Cristina Castañeda is a 39-year-old female with a past medical history of hyperparathyroidism and recurrent nephrolithiasis who presents on 02/09 with fevers and chills. Patient states that symptoms started in the morning with associated nausea, dizziness, headaches, and bilateral flank pain. She has a known history of recurrent nephrolithiasis and secondary to hypercalcemia/hyperparathyroidism. Follows up with Dr. Carballo and has had ureteral stents placed in the past that have since been removed. Otherwise, denies hematuria, dysuria, or urinary frequency. States that she used to follow-up with an electronic parts designer in the past but no longer does. In the ED, BP 141/90, HR 121, temp 1 to 2.4 ?F. WBC 15.8, otherwise CBC unremarkable. CHEM panel showed K of 3.3, normal kidney function, normal lactate, normal corrected calcium 10, Pro-Jeff negative. UA showed 1+ blood, 9 RBC, 23 WBC, rare bacteria, beta-hCG negative. CT A/P showed numerous bilateral nonobstructing renal calculi, minimal bilateral hydronephrosis with wall thickening of the ureters. Given IVF per sepsis protocol, an additional 1 L NS, and started on maintenance IVF, ceftriaxone 1 g x 2, 40 mEq of KCl. Patient started on ceftriaxone, cultures were obtained and urology was consulted. Overnight there were no acute events but patient did spike a fever at around 10:40 PM at 101 ?F. Following morning, a.m. labs showed improvement in leukocytosis from 15.8 to 12.2 and patient endorsed improvement of symptoms, including flank pain, sweats, and chills. Given that patient spiked a fever and cultures still pending less than 48 hours, recommended patient to stay for further observation with IV antibiotics and prelim culture results after 48 hours. However, patient states that she feels better compared to presentation and would like to leave AGAINST MEDICAL ADVICE. Spoke to patient at length regarding possible complications of leaving without culture results empiric antibiotics and patient understood risks and agreed to return if symptoms worsened or recurred. Patient signed AMA form and will be sent an 8-day course of Augmentin. ----- Case discussed with attending physician Dr. Kimber Stafford MD PGY-1 Internal Medicine Time Spent with Patient Time attestation: Total time spent providing and/or coordinating discharge services: Time spent: Greater than 30 minutes Exam Vital Signs Temp Pulse Resp BP Pulse Ox O2 Del Method 98.2 F 77 17 114/75 98 Room Air 02/10/25 12:00 02/10/25 12:00 02/10/25 12:00 02/10/25 12:00 02/10/25 12:00 02/10/25 12:00 Narrative Exam General: AOx3, no acute distress, able to speak full sentences HEENT: NC/AT, mucous membranes moist, bilateral sclera anicteric Cardiovascular: regular rate and rhythm, S1/S2 present, no murmurs appreciated Pulmonary: clear to auscultation bilaterally, no rales/rhonchi/wheezes Abdominal: soft, non-tender, non-distended, no rebound/guarding, normal bowel sounds present Musculoskeletal: no CVA tenderness, normal ROM, no peripheral edema Skin: warm and dry, intact, no rashes Neuro: CN II-XII intact, no focal deficits Discharge Plan Plan Patient Disposition: Left Against Medical Advice Patient condition on transfer: Stable Care Plan Goals: ? Patient decided to leave against medical advice but will send antibiotic ordered below: ? Take amoxicillin-clavulanate 875-125 twice daily for 8 more days to finish your antibiotic course ? Return to ED if symptoms worsen or recur Prescriptions/Referrals Prescriptions/Med Rec: New amoxicillin-pot clavulanate 875-125 mg tablet 1 tab PO BID 8 Days Qty: 16 0RF Referrals: No Primary/Family,Physician [Primary Care Provider] - Patient/Caregiver Discharge Instructions Other Discharge Diet Instructions: Stay hydrated with Pedialyte and Gatorade Print Language: Setswana Quality Discharge Quality Measures VTE prophylaxis MD Attestestation Attestation I attest that I was physically present for the evaluation, physical examination, lab and imaging review of the patient with the residents. I discussed the case with the residents and agree with the findings and plans of care as documented above. Marco A Quiroga MD
--- NOTE | 2025-02-11 16:05 | ESCONSULT_ITS ---
RE: JAMSHID VILLEDA : 1985 DATE OF CONSULTATION: 02/09/2025 CHIEF COMPLAINT: Fever and chills of 6 hours duration. It was associated with nausea, dizziness, headache, and bilateral flank pain. The patient has a history of recurrent nephrolithiasis secondary to hypercalcemia/hyperparathyroidism. In the emergency room, her blood pressure was 141/90, heart rate 121, temperature is 101. HISTORY OF PRESENT ILLNESS: This is a 39-year-old, 3, para 3. She has a history of bilateral renal calculi. She had bilateral RIR stone basketing done by Dr. Hernández and Dr. Carballo. The composition of the stone is calcium oxalate dihydrate 30%, calcium oxalate monohydrate 35%, apatite carbonate 35%. The patient has hyperparathyroidism and she is going to have a consultation in [facility] with pole peeler. The patient has not yet heard from [facility]. Past medical history, family history, review of the systems, personal history, please refer to patient's history form dated 02/09/2025, it is in HPI, in EMR. REVIEW OF SYSTEMS: All systems reviewed, normal except as documented. PHYSICAL EXAMINATION: GENERAL: Condition is satisfactory, not in acute distress. Orientation x3. HEENT: Normocephalic and atraumatic. Eyes: No anemia or jaundice. NECK: Supple. Trachea is central. Thyroid is not enlarged. CARDIOVASCULAR AND PULMONARY: Regular rate and rhythm. CHEST: Symmetrical. ABDOMEN: No masses. Liver, spleen, and kidney not palpable. No CVA tenderness. VARIOUS LABS: Done in the emergency revealed WBC of 15.8, serum potassium of 3.3. Urine had shown 1+ blood, 9 RBCs, 23 WBCs, rare bacteria. IMAGING: The patient had CAT scan of the abdomen and pelvis done with stone protocol. This is reviewed by me. This revealed bilateral renal calculi. There was no obstructive stone identified. ASSESSMENT AND PLAN: This is a 39-year-old female who has past medical history of stone disease. She has recurrent nephrolithiasis and she is admitted in the hospital with urinary tract infection. RECOMMENDATIONS: Urine for culture and sensitivity. Treat her with antibiotics. Followup appointment in urology office in 6 weeks. I will make the arrangement and I am going to get in touch with pole peeler in [facility], so that she can be seen and she is going to need hyperparathyroidectomy. All above issues were discussed with the patient in detail. Questions were answered to her satisfaction. She verbalized understanding. DT: 08:57:17 TT: 10:05:00 Ref: [id number] - TID: [id number]
== END 2025-02-10 15:02 | disposition left against medical advice (07) | DRG 690 ==
LOC: SERX 02-09 08:07 → SERHOLD 02-09 09:30 → S3SX 02-09 10:56
PROVIDERS: Nurse Practitioner Family; Admitting Provider Student in an Organized Health Care Education/Training Program; Emergency Provider Emergency Medicine; Visit Provider Student in an Organized Health Care Education/Training Program
DX: N13.6 Pyonephrosis (principal); E21.3 Hyperparathyroidism, unspecified; N20.0 Calculus of kidney; Z87.442 Personal history of urinary calculi; E78.5 Hyperlipidemia, unspecified; Z53.29 Procedure and treatment not carried out because of patient's decision for other reasons
CPT/HCPCS: 36415; 71045; 74177; 80048; 80053; 81001; 81025; 83605; 83690; 83735; 84100; 84145; 85025; 87040; 87086; 87811; 96365; 96366; 96367; 99291; A4649; J0696; J7030; Q9967; A9270

== ENCOUNTER → 2025-08-09 | Outpatient (BNVA) | payer BC, MEDICAID, SELFPAY | END | disposition home or self-care (01) | PROVIDERS: PCP Physician Assistant; Referring Provider Physician Assistant; Visit Provider Urology | DX: N20.0 Calculus of kidney (principal); E21.3 Hyperparathyroidism, unspecified; E66.9 Obesity, unspecified; Z68.37 Body mass index [BMI] 37.0-37.9, adult | CPT/HCPCS: 81003; 99212; G0463 ==